=== PATIENT | male | born 1995 | race African-American/Black ===

== ENCOUNTER 2024-06-01 00:20 | Emergency (ER) | payer OTHER ==
[~2024-06-01] VITALS: Ht 172.7 cm; Wt 82.0 kg
[2024-06-01 00:23] VITALS: BP 133/76; PULSE 95; TEMP 97.5; O2SAT 100
[2024-06-01] MEDS ORDERED: CEPH500T MT (01:11)
[2024-06-01] MEDS: ACETAMINOPHEN 500MG TABLET PO ONE (01:15)
[2024-06-01 01:25] VITALS: RESP 18
== END 2024-06-01 01:25 | disposition home or self-care (01) ==
LOC: ER 00:20
DX: T81.41XA Infection following a procedure, superficial incisional surgical site, initial encounter (principal); X58.XXXA Exposure to other specified factors, initial encounter; Y93.89 Activity, other specified; Y92.89 Other specified places as the place of occurrence of the external cause; Y99.8 Other external cause status
CPT/HCPCS: 99283